=== PATIENT | female | born 2000 | race Caucasian/White ===

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

== ENCOUNTER 2022-05-27 13:40 | Emergency (ER) | payer OTHER, SELFPAY ==
[2022-05-27 13:46] VITALS: BP 109/75; PULSE 101; RESP 16; TEMP 37.3; O2SAT 100
--- NOTE | 2022-05-27 14:37 | ED.URI ---
HPI - URI/Sore Throat General Chief Complaint: Upper Respiratory Infection Stated Complaint: migraine sore throat and abdo pain Time Seen by Provider: 05/27/22 14:37 Source: patient Mode of arrival: ambulatory Limitations: no limitations History of Present Illness HPI Narrative: 21 yo F presents with c/o sore throat, headache, fatigue, bodyaches, chills for 3 days. Reports some symptoms improving but still has sore throat. Denies N/V. Had mild runny nose but resolved. Taking tylenol with no relief of pain. All systems reviewed and negative except as noted above. Related Data Home Medications Medication Instructions Recorded Confirmed No Home Medications 01/25/22 05/27/22 Allergies Allergy/AdvReac Type Severity Reaction Status Date / Time No Known Allergies Allergy Verified 05/27/22 14:09 Review of Systems Review of Systems: CONSTITUTIONAL: Reports fever, chills, or sweats. EYES: Denies visual changes, redness, or discharge. ENT: Denies rhinorrhea, congestion. Reports sore throat. Denies otalgia. CARDIOVASCULAR: Denies chest pain, palpitations, or edema. RESPIRATORY: Denies cough or dyspnea. GASTROINTESTINAL: Denies abdominal pain, nausea, vomiting, or diarrhea. GENITOURINARY: Denies dysuria or hematuria. SKIN: Denies rash or itching. MUSCULOSKELETAL: Denies back pain, joint pain, or myalgia. NEUROLOGIC: Reports headache. Denies numbness, or weakness. PSYCHIATRIC: Denies anxiety or depression. All other systems reviewed are negative, except as documented in HPI. [facility] Past Medical History Medical History Fibroid Generalized headaches Otitis externa Right arm fracture Strep pharyngitis Surgical History Surgical History History of dental surgery as child. Family History Family History Grandparent HIGUERA (nonalcoholic steatohepatitis) Diabetes mellitus Skin cancer Heart disease Depression Hypertension Father Hypertension Social History Social History Smoking status: Current every day smoker (vapes/e-cigarettes) Tobacco type: e-cigarettes/vaping Alcohol intake: never Substance use: never Gender identity (if verbalized by the patient): Female Comments At time of signature, agree with nursing past medical, surgical, social and family history. There is no relevant family history pertinent to the presenting complaint. Exam Narrative: GENERAL: This is a well-nourished, well-developed patient, in no apparent distress. HEAD: normocephalic, atraumatic. EYES: PERRL. Sclera clear/white. Vision is grossly intact. EARS: External ears normal, auditory canals clear and without drainage, TMs normal without perforation. Hearing grossly intact. NOSE: External nose normal with no obvious nasal discharge, nares without redness, no rhinorrhea. THROAT: Mucous membranes moist, mild erythema to posterior pharynx. No swelling or exudates. NECK: Neck supple, non-tender without lymphadenopathy, masses or thyromegaly. CARDIOVASCULAR: Regular rate and rhythm without murmurs, gallops, or rubs. RESPIRATORY: Clear to auscultation. Breath sounds equal bilaterally. No wheezes, rales, or rhonchi. SKIN: warm, Dry, intact with no suspicious lesions or rash, good texture and turgor. NEURO: awake, alert, and oriented to person, place and time. There were no obvious focal neurologic abnormalities. EXTREMITIES: No joint tenderness, effusion, or edema noted. Course Course Level of Care: Express Care Visit Vital Signs Vital signs: Vital Signs Temperature 37.3 C 05/27/22 13:46 Pulse Rate 101 H 05/27/22 13:46 Respiratory Rate 16 05/27/22 13:46 Blood Pressure 109/75 05/27/22 13:46 Pulse Oximetry 100 05/27/22 13:46 Oxygen Delivery Room Air 05/27/22 13:46 Temperat
== END 2022-05-27 14:45 | disposition home or self-care (01) ==
PROVIDERS: Emergency Provider Nurse Practitioner Family
DX: B34.9 Viral infection, unspecified (principal); Z20.822 Contact with and (suspected) exposure to COVID-19; F17.290 Nicotine dependence, other tobacco product, uncomplicated
CPT/HCPCS: 87081; 87426; 87880; 99213; C9803; G0463

== ENCOUNTER 2022-09-06 11:22 | Emergency (ER) | payer OTHER, SELFPAY ==
[2022-09-06 11:27] VITALS: BP 109/72; PULSE 77; RESP 18; TEMP 37.5; O2SAT 99
--- NOTE | 2022-09-06 12:12 | ED.URI ---
HPI - URI/Sore Throat General Chief Complaint: Upper Respiratory Infection Stated Complaint: Left Arm Pain Time Seen by Provider: 09/06/22 12:14 Source: patient and RN notes reviewed Mode of arrival: ambulatory Limitations: no limitations History of Present Illness MD elicited complaint: cough Related Data Home Medications Medication Instructions Recorded Confirmed levonorgestrel 20 mcg/24 hours (8 1 device intrauterine ONCE 06/05/22 09/06/22 yrs) 52 mg intrauterine device (Mirena) Allergies Allergy/AdvReac Type Severity Reaction Status Date / Time nickel Allergy Unknown Unknown Verified 09/06/22 11:51 Review of Systems Review of Systems: CONSTITUTIONAL: denies malaise, chills, sweats, fever EYES: Denies visual changes, redness, or discharge ENT:per HPI CARDIOVASCULAR: Denies chest pain, palpitations, edema RESPIRATORY: Reports cough, post nasal drainage. Denies dyspnea GASTROINTESTINAL: Denies abdominal pain, nausea, vomiting, diarrhea SKIN: Denies rash or itching MUSCULOSKELETAL: Denies myalgia NEUROLOGIC: Denies headache PMFSH Past Medical History Medical History Fibroid Generalized headaches Otitis externa Right arm fracture Strep pharyngitis Surgical History Surgical History History of dental surgery as child. Family History Family History Grandparent HIGUERA (nonalcoholic steatohepatitis) Diabetes mellitus Skin cancer Heart disease Depression Hypertension Father Hypertension Social History Social History Smoking status: Current every day smoker (vapes/e-cigarettes) Tobacco type: e-cigarettes/vaping Alcohol intake: never Substance use: never Additional occupation/education comments: [employer] Gender identity (if verbalized by the patient): Female Exam Narrative: GENERAL: Ill-appearing, nontoxic EYES: conjunctivae clear ENT: Mucous membranes moist. TMs pearly douglas with normal light reflex bilaterally; no tragal tenderness. Post auricular red slightly raised tender areas bilaterally approx 1cm diameter c/w lymphadenopathy, right neck with additional red raised area approx 0.5cm diameter. Oropharynx erythematous without lesions or exudate, no drooling, no hoarseness, no trismus, uvula midline. NECK: Supple. left posterior/cervical area with approx 0.5cm diameter subcutaneous tender nodule, no redness CHEST: Clear to auscultation, breath sounds equal. HEART: Regular rate and rhythm. No murmur heard. SKIN: Warm, dry, no rash. NEURO: Alert and oriented x3. Course Course Emergency Course: Patient is aware of diagnosis, understands and agrees to treatment plan. Anticipatory guidance given. Patient agrees to follow-up as directed and is aware of reasons to seek care at the emergency department. Portions of this record may have been created with voice recognition software Level of Care: Express Care Visit Vital Signs Vital signs: Vital Signs Temperature 99.5 F 09/06/22 11:27 Pulse Rate 77 09/06/22 11:27 Respiratory Rate 18 09/06/22 11:27 Blood Pressure 109/72 09/06/22 11:27 Pulse Oximetry 99 09/06/22 11:27 Oxygen Delivery Room Air 09/06/22 11:27 Temperature 99.5 F 09/06/22 11:27 Pulse Rate 77 09/06/22 11:27 Respiratory Rate 18 09/06/22 11:27 Blood Pressure 109/72 09/06/22 11:27 Pulse Oximetry 99 09/06/22 11:27 Oxygen Delivery Room Air 09/06/22 11:27 reviewed MDM - URI/Sore Throat MDM Narrative Medical decision making narrative: Advised supportive measures and signs/symptoms to go to the ER. Pt is appropriate for outpt treatment and f/u. Differential Diagnosis Differential diagnosis: Likely upper respiratory infection, sinusitis and viral infection Discharge Plan Discharge Clinic
--- NOTE | 2022-09-06 15:25 | PC.NURSE ---
MEDROL DOSE PACK WAS CALLED INTO [facility] [place], IT WAS NOT ELECTRONICALLY TRANSMITTED.
== END 2022-09-06 12:30 | disposition home or self-care (01) ==
PROVIDERS: Emergency Provider Nurse Practitioner Family
DX: J06.9 Acute upper respiratory infection, unspecified (principal); F17.290 Nicotine dependence, other tobacco product, uncomplicated
CPT/HCPCS: 99213; G0463

== ENCOUNTER 2022-10-29 11:27 | Outpatient (CLI) | payer OTHER, SELFPAY ==
--- NOTE | ~2022-10-29 | XR_ITS ---
XR abdomen obstructive series DATE: 10/29/2022 11:48 INDICATION: Abdominal pain TECHNIQUE: Supine and upright AP views of the abdomen COMPARISON: None FINDINGS: An IUD overlies the pelvis. No evidence of bowel obstruction or intraperitoneal free air. The psoas shadows are intact. No viscer omegaly is noted. Multiple left calcified pelvic phleboliths. No apparent urinary tract calcification . The lung bases are clear. Heart size appears normal. Included skeletal structures are unremarkable. IMPRESSION: IUD overlying pelvis Reviewed, dictated and finalized at [facility]. Reviewed, dictated and finalized at location [facility]. 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
[2022-10-31 10:20] LABS: HIV 1 2 Ag Ab 4th Gen w Rflxs Non-reactive (Non-reactive)
[2022-11-01 21:01] LABS: HSV 1 IgM Screen Negative (Negative); HSV 2 IgM Screen Negative (Negative)
== END 2022-10-29 11:28 | disposition home or self-care (01) ==
LOC: ANHBWCLAB 11:28
PROVIDERS: PCP Family Medicine; Visit Provider Family Medicine
DX: R10.9 Unspecified abdominal pain (principal); Z72.51 High risk heterosexual behavior
CPT/HCPCS: 36415; 74019; 86695; 86696; 87389; 87491; 87591

== ENCOUNTER 2022-12-17 13:48 | Outpatient (CLI) | payer OTHER, SELFPAY ==
[2022-12-21 08:45] LABS: HSV 1 IgM Screen Negative (Negative); HSV 2 IgM Screen Negative (Negative)
== END 2022-12-17 13:49 | disposition home or self-care (01) ==
PROVIDERS: PCP Family Medicine; Visit Provider Obstetrics & Gynecology
DX: Z20.2 Contact with and (suspected) exposure to infections with a predominantly sexual mode of transmission (principal)
CPT/HCPCS: 36415; 86695; 86696

== ENCOUNTER 2023-05-11 08:51 | Emergency (ER) | payer OTHER, SELFPAY ==
[2023-05-11 09:00] VITALS: BP 106/77; PULSE 98; RESP 20; TEMP 36.6; O2SAT 100
--- NOTE | 2023-05-11 09:22 | ED.URI ---
HPI - URI/Sore Throat General Chief Complaint: Upper Respiratory Infection Stated Complaint: sore throat/fever Time Seen by Provider: 05/11/23 09:10 Source: patient and RN notes reviewed History of Present Illness HPI Narrative: Patient is a 22-year-old female presents to urgent care with complaints of a sore throat, intermittent headaches and fever. Patient states that her symptoms started on Friday with a slight sore throat and worsened over the last couple days. Patient has been taking Tylenol for the fever. No other acute complaints. Denies any ill exposures. No acute distress noted. Patient aware of the plan of care. Some parts of this dictation were generated by voice recognition software and may contain typographical and/or grammatical inaccuracies. Related Data Home Medications Medication Instructions Recorded Confirmed levonorgestrel 21 mcg/24 hours (8 1 device intrauterine ONCE 06/05/22 05/11/23 yrs) 52 mg intrauterine device (Mirena) Allergies Allergy/AdvReac Type Severity Reaction Status Date / Time nickel Allergy Unknown Unknown Verified 05/11/23 09:06 Review of Systems Review of Systems: CONSTITUTIONAL: Reports of fever EYES: Denies visual changes, redness, or discharge. ENT: Denies rhinorrhea, congestion, or otalgia. Reports of sore throat CARDIOVASCULAR: Denies chest pain, palpitations, or edema. RESPIRATORY: Denies cough or dyspnea. GASTROINTESTINAL: Denies abdominal pain, nausea, vomiting, or diarrhea. GENITOURINARY: Denies dysuria or hematuria. SKIN: Denies rash or itching. MUSCULOSKELETAL: Denies back pain, joint pain, or myalgia. NEUROLOGIC: Reports of headache All other systems reviewed are negative, except as documented in HPI. [facility] Past Medical History Medical History Fibroid Generalized headaches Otitis externa Right arm fracture Strep pharyngitis Surgical History Surgical History History of dental surgery as child. Family History Family History Grandparent HIGUERA (nonalcoholic steatohepatitis) Diabetes mellitus Skin cancer Heart disease Depression Hypertension Father Hypertension Social History Social History Smoking status: Current every day smoker (vapes/e-cigarettes) Tobacco type: e-cigarettes/vaping Alcohol intake: never Substance use: never Lack of Transportation: No Lack of Food: Never True Current Housing: I Have Housing Concerned About Future Housing: No Difficulty Paying Gas/Electric Bills: No Difficulty Paying for Meds: No Currently Unemployed: No Education: High School Diploma/GED Difficulty w/ Childcare or Family Care: No Living arrangements: with family Occupation/Education: occupation 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 There is no relevant family history pertinent to the patient complaint. Exam Narrative: GENERAL: This is a well-nourished, well-developed patient, in no apparent distress. HEAD: normocephalic, atraumatic. EYES: PERRL. Sclera clear/white. Vision is grossly intact. EARS: External ears normal, auditory canals clear and without drainage, TMs normal without perforation. Hearing grossly intact. NOSE: External nose normal with no obvious nasal discharge, nares without redness, no rhinorrhea. THROAT: Mucous membranes moist, posterior pharynx clear. NECK: Neck supple CARDIOVASCULAR: Regular rate and rhythm without murmurs, gallops, or rubs. RESPIRATORY: Clear to auscultation. Breath sounds equal bilaterally. No wheezes, rales, or rhonchi. SKIN: warm, intact with no suspici
== END 2023-05-11 09:39 | disposition home or self-care (01) ==
PROVIDERS: Emergency Provider Nurse Practitioner Family; PCP Family Medicine
DX: J02.9 Acute pharyngitis, unspecified (principal); F12.90 Cannabis use, unspecified, uncomplicated; F17.290 Nicotine dependence, other tobacco product, uncomplicated
CPT/HCPCS: 87081; 87880; 99213; G0463

== ENCOUNTER 2023-08-27 14:37 | Emergency (ER) | payer OTHER, SELFPAY ==
[2023-08-27 14:45] VITALS: BP 93/66; PULSE 60; RESP 18; TEMP 36.7; O2SAT 99
--- NOTE | 2023-08-27 15:01 | ED.FEMALEGU ---
HPI - Female Genitourinary General Chief complaint: Urogenital-Female Stated complaint: Urinary Problems Source: patient and RN notes reviewed History of Present Illness HPI Narrative: 22 yo F presents to urgent care with complaints of dysuria that started today. Pt reports burning with urination, urinary frequency and urgency. Denies any fevers, chills, abdominal pain, flank pain, vomiting, or back pain. Related Data Home Medications Medication Instructions Recorded Confirmed levonorgestrel 21 mcg/24 hours (8 1 device intrauterine ONCE 06/05/22 08/27/23 yrs) 52 mg intrauterine device (Mirena) Allergies Allergy/AdvReac Type Severity Reaction Status Date / Time nickel Allergy Unknown Unknown Verified 06/17/23 14:12 Review of Systems Review of Systems: CONSTITUTIONAL: Denies fever, chills, or sweats. EYES: Denies visual changes, redness, or discharge. ENT: Denies otalgia and sore throat CARDIOVASCULAR: Denies chest pain, palpitations, or edema. RESPIRATORY: Denies cough or dyspnea. GASTROINTESTINAL: Denies abdominal pain, nausea, vomiting, or diarrhea. GENITOURINARY: Dysuria SKIN: Denies rash or itching. MUSCULOSKELETAL: Denies back pain, joint pain, or myalgia. NEUROLOGIC: Denies headache, numbness, or weakness. Pertinent positives per HPI. [facility] Past Medical History Medical History (Updated 08/27/23 @ 15:04 by Sandrine Garcia, LOGGING ENGINEER) Fibroid Generalized headaches HSV-1 (herpes simplex virus 1) infection Otitis externa Right arm fracture Strep pharyngitis Surgical History Surgical History History of dental surgery as child. Family History Family History Grandparent HIGUERA (nonalcoholic steatohepatitis) Diabetes mellitus Skin cancer Heart disease Depression Hypertension Father Hypertension Social History Social History Smoking status: Current every day smoker (vapes/e-cigarettes) Tobacco type: e-cigarettes/vaping Alcohol intake: never Substance use: never Lack of Transportation: No Lack of Food: Never True Current Housing: I Have Housing Concerned About Future Housing: No Difficulty Paying Gas/Electric Bills: No Difficulty Paying for Meds: No Currently Unemployed: No Education: High School Diploma/GED Difficulty w/ Childcare or Family Care: No Living arrangements: with family Occupation/Education: occupation 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 There is no relevant family history pertinent to the patient complaint. Exam Narrative: GENERAL: This is a well-nourished, well-developed patient, in no apparent distress. HEAD: normocephalic, atraumatic. EYES: Sclera clear/white. Vision is grossly intact. EARS: External ears normal, auditory canals clear and without drainage. Hearing grossly intact. NOSE: External nose normal with no obvious nasal discharge, nares without redness, no rhinorrhea. THROAT: Mucous membranes moist, posterior pharynx clear. NECK: Neck supple, non-tender without lymphadenopathy, masses or thyromegaly. CARDIOVASCULAR: Regular rate and rhythm without murmurs, gallops, or rubs. RESPIRATORY: Clear to auscultation. Breath sounds equal bilaterally. No wheezes, rales, or rhonchi. GASTROINTESTINAL: Abdomen soft, non-tender, nondistended. Bowel sounds are active. No hepato-splenomegaly, or palpable masses. No guarding. SKIN: warm, intact with no suspicious lesions or rash, good texture and turgor. NEURO: awake, alert, and oriented to person, place and time. There were no obvious focal neurologic abnormalities. EXTREMITIES: No clubbing, cyanosis, or edema. No joint tenderness, effusio
== END 2023-08-27 15:10 | disposition home or self-care (01) ==
PROVIDERS: Emergency Provider Nurse Practitioner Family; PCP Family Medicine
DX: N39.0 Urinary tract infection, site not specified (principal); F17.290 Nicotine dependence, other tobacco product, uncomplicated
CPT/HCPCS: 81003; 87077; 87086; 87186; 99213; G0463

== ENCOUNTER 2024-07-12 12:43 | Emergency (ER) | payer OTHER, SELFPAY ==
[2024-07-12 12:50] VITALS: BP 104/75; PULSE 70; RESP 14; TEMP 36.9; O2SAT 100
--- NOTE | 2024-07-12 13:00 | ED.FEMALEGU ---
HPI - Female Genitourinary General Chief complaint: Urogenital-Female Stated complaint: Urinary Problem Time Seen by Provider: 07/12/24 13:00 Source: patient Mode of arrival: ambulatory Limitations: no limitations History of Present Illness HPI Narrative: 23-year-old female presents with complaint of urinary frequency, urgency, dysuria starting this morning. Afebrile. No back or abdominal pain. All systems reviewed and negative except as noted above. Related Data Home Medications Medication Instructions Recorded Confirmed levonorgestrel 21 mcg/24 hr (up to 1 device intrauterine ONCE 06/05/22 05/19/24 8 years) 52 mg intrauterine device (Mirena) Allergies Allergy/AdvReac Type Severity Reaction Status Date / Time nickel Allergy Unknown Unknown Verified 06/17/23 14:12 nkda AdvReac Mild na Uncoded 05/19/24 08:43 Review of Systems Review of Systems: CONSTITUTIONAL: Denies fever, chills, or sweats. EYES: Denies visual changes, redness, or discharge. ENT: Denies rhinorrhea, congestion, sore throat, or otalgia. CARDIOVASCULAR: Denies chest pain, palpitations, or edema. RESPIRATORY: Denies cough or dyspnea. GASTROINTESTINAL: Denies abdominal pain, nausea, vomiting, or diarrhea. GENITOURINARY: Reports dysuria, urgency, frequency. Denies hematuria. SKIN: Denies rash or itching. MUSCULOSKELETAL: Denies back pain, joint pain, or myalgia. NEUROLOGIC: Denies headache, numbness, or weakness. PSYCHIATRIC: Denies anxiety or depression. All other systems reviewed are negative, except as documented in HPI. [facility] Past Medical History Medical History Fibroid Generalized headaches HSV-1 (herpes simplex virus 1) infection Otitis externa Right arm fracture Strep pharyngitis Surgical History Surgical History History of dental surgery as child. Family History Family History Grandparent HIGUERA (nonalcoholic steatohepatitis) Diabetes mellitus Skin cancer Heart disease Depression Hypertension Father Hypertension Social History Social History Smoking status: Current every day smoker (vapes/e-cigarettes) Tobacco type: e-cigarettes/vaping Alcohol intake: never Substance use: never Lack of Transportation: No Lack of Food: Never True Current Housing: I Have Housing Concerned About Future Housing: No Difficulty Paying Gas/Electric Bills: No Difficulty Paying for Meds: No Currently Unemployed: No Education: High School Diploma/GED Difficulty w/ Childcare or Family Care: No Living arrangements: with family Occupation/Education: occupation 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 There is no relevant family history pertinent to the presenting complaint. Exam Narrative: GENERAL: This is a well-nourished, well-developed patient, in no apparent distress. HEAD: normocephalic, atraumatic. EYES: PERRL. Sclera clear/white. Vision is grossly intact. EARS: External ears normal NOSE: External nose normal NECK: Neck supple, non-tender without lymphadenopathy, masses or thyromegaly. CARDIOVASCULAR: Regular rate and rhythm without murmurs, gallops, or rubs. RESPIRATORY: Clear to auscultation. Breath sounds equal bilaterally. No wheezes, rales, or rhonchi. SKIN: warm, Dry, intact with no suspicious lesions or rash, good texture and turgor. NEURO: awake, alert, and oriented to person, place and time. There were no obvious focal neurologic abnormalities. EXTREMITIES: No joint tenderness, effusion, or edema noted. Course Course Level of Care: Express Care Visit Vital Signs Vital signs: Vital Sig
[2024-07-12 13:08] LABS: EDUAAPPEAR Cloudy; EDUABILI 1+; EDUABLOOD 2+; EDUACOLOR1 Yellow; EDUAGLUCOSE Negative; EDUAKETONE Negative; EDUALEUKO 1+; EDUANITRATE Negative; EDUAPROTEIN Trace; EDUAUROBILI 0.2
== END 2024-07-12 13:12 | disposition home or self-care (01) ==
PROVIDERS: Emergency Provider Nurse Practitioner Family
DX: N39.0 Urinary tract infection, site not specified (principal); F17.290 Nicotine dependence, other tobacco product, uncomplicated
CPT/HCPCS: 81003; 87077; 87086; 87088; 99213; G0463

== ENCOUNTER 2024-10-25 09:24 | Emergency (ER) | payer OTHER, SELFPAY ==
--- NOTE | 2024-10-25 09:39 | ED_ITS ---
HPI - URI/Sore Throat General Chief Complaint: Upper Respiratory Infection Stated Complaint: Sore Throat History of Present Illness HPI Narrative: 24-year-old female presented for complaint of sore throat for 2 weeks. Endorses associated nasal congestion, drainage, hoarse voice, and cough. Denies shortness of breath, wheezing, nausea, vomiting, diarrhea, fevers or lethargy. Taking cough drops for symptoms. Related Data Home Medications Medication Instructions Recorded Confirmed levonorgestrel 21 mcg/24 hr (up to 1 device intrauterine ONCE 06/05/22 09/29/24 10 years) 52 mg intrauterine device (Mirena) Allergies Allergy/AdvReac Type Severity Reaction Status Date / Time nickel Allergy Unknown Unknown Verified 09/29/24 08:47 nkda AdvReac Mild na Uncoded 09/29/24 08:47 Review of Systems Review of Systems: CONSTITUTIONAL: Denies body aches, fever, chills, or sweats. EYES: Denies visual changes, redness, or discharge. ENT:reports rhinorrhea, congestion, sore throat denies otalgia. CARDIOVASCULAR: Denies chest pain, palpitations, or edema. RESPIRATORY: Denies dyspnea. GASTROINTESTINAL: Denies abdominal pain, nausea, vomiting, or diarrhea. MUSCULOSKELETAL: Denies back pain, joint pain, or myalgia. NEUROLOGIC: Denies headache PMFSH Past Medical History Medical History Fibroid Generalized headaches HSV-1 (herpes simplex virus 1) infection Otitis externa Right arm fracture Strep pharyngitis Surgical History Surgical History History of dental surgery as child. Family History Family History Grandparent HIGUERA (nonalcoholic steatohepatitis) Diabetes mellitus Skin cancer Heart disease Depression Hypertension Father Hypertension Social History Social History Smoking status: Current every day smoker (vapes/e-cigarettes) Tobacco type: e-cigarettes/vaping Alcohol intake: never Substance use: never Lack of Transportation: No Lack of Food: Never True Current Housing: I Have Housing Concerned About Future Housing: No Difficulty Paying Gas/Electric Bills: No Difficulty Paying for Meds: No Currently Unemployed: No Education: High School Diploma/GED Difficulty w/ Childcare or Family Care: No Living arrangements: with family Occupation/Education: occupation 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 EYES: conjunctivae clear ENT: Mucous membranes moist. TM pearly douglas with normal light reflex bilaterally; no tragal tenderness. Oropharynx erythematous without lesions. Tonsils not enlarged and without exudate. Hoarse voice. No drooling, no trismus, uvula midline. No tripod positioning, hot potato voice, or soft palate swelling. NECK: Supple. No lymphadenopathy CHEST: Clear to auscultation, breath sounds equal. No respiratory distress, speaks in full sentences. HEART: Regular rate and rhythm. No murmur heard. SKIN: Warm, dry, no rash. NEURO: Alert and oriented x3. Course Course Emergency Course: Patient is aware of diagnosis, understands and agrees to treatment plan. Anticipatory guidance given. Patient agrees to follow-up as directed and is aware of reasons to seek care at the emergency department. Portions of this record may have been created with voice recognition software Level of Care: Express Care Visit MDM - URI/Sore Throat MDM Narrative Medical decision making narrative: Neg strep result reviewed with pt. Advise supportive treatments. Patient is appropriate for outpatient treatment and follow-up. Differential Diagnosis Differential diagnosis: Likely upper respiratory infection, viral infection and pharyngitis Discharge Plan Discharge Clinical Impression: Sinusitis Patient Disposition: Home, Self-Care Condition: Stable Instructions: Antibiotic Form, Rhinosinusitis (ED) Additional Instructions: Rapid strep swab was negative today You will be notified in a few days if the culture comes back positive for strep if symptoms are due to a viral illness, it is not treated with antibiotics. Viral symptoms can be present for up to 10-14 days. Recommendations: Flonase spray and Zyrtec for sinus congestion Cough syrup may cause drowsiness; avoid driving or take it at night time. Tylenol every 8 hours as needed for pain/fever Soft foods, cool liquids, warm tea. Gargle with warm saltwater twice a day. Chloraseptic spray and throat lozenges. Rest and stay hydrated. --Follow up with your PCP --Go to the ER immediately if you cannot swallow your saliva, trouble breathing/wheezing, throat swelling, pain is persistent and severe Prescriptions: New amoxicillin-pot clavulanate 875-125 mg tablet 1 tablet PO Q12H 7 Days Qty: 14 0RF No Action Mirena 20 mcg/24 hours (7 yrs) 52 mg intrauterine device 1 device intrauterine ONCE Rx Instructions: as a single dose valacyclovir 1 gram tablet 1,000 mg PO DAILY Qty: 30 11RF Follow-up/Referrals: PHYSICIAN,VENDING MACHINE MECHANIC [Primary Care Provider] - Time of Disposition: 09:55
[2024-10-25 09:46] VITALS: BP 110/67; PULSE 64; RESP 16; TEMP 36.6; O2SAT 99
[2024-10-25 17:03] LABS: EDSTREPNEGPOS1 Negative (Negative)
== END 2024-10-25 09:59 | disposition home or self-care (01) ==
PROVIDERS: Emergency Provider Nurse Practitioner Family
DX: J32.9 Chronic sinusitis, unspecified (principal); F17.290 Nicotine dependence, other tobacco product, uncomplicated
CPT/HCPCS: 87081; 87880; 99213; G0463

== ENCOUNTER 2025-04-25 12:49 | Emergency (ER) | payer OTHER, SELFPAY ==
--- OUTSIDE RECORDS SUMMARY | 2025-04-25 12:55 | XMS_ITS | Clinical Summary ---
Author Organization [facility] Address [address] [place] [address] Care Team Providers Care Slurry Tank Operator Name Role Phone Sara Colon MD Primary Care Provider Source Comments [facility],non-owned Affiliates and Associated Physician Practices is amultiple site organization consisting of ambulatory clinics and hospital sitesin [place], [place], [place] and [place]. This disclosure is being madepursuant to the Care Everywhere program and may not contain all information available regarding this patient. Last updated 18.[facility] Allergies No known active allergies Medications * Be aware that medications may not be up to date on this document. Alwaysverify current medications with the patient. No known medications Active Problems Problem Noted Date Diagnosed Date Neoplasm of uncertain behavior of skin Assessment & Plan (03/08/2021 4:00 PM CDT): - R upper eyelid PG vs other - Shave Biopsy (see procedure note) - Post-biopsy handout given - Wound care instructions reviewed - Will call patient with biopsy results. If intervention is indicated, will make arrangements at that time Weight loss 01/02/2021 Resolved Problems Problem Noted Date Diagnosed Date Resolved Date Lumbago 02/21/2017 01/02/2021 Closed fracture of radius and ulna 08/18/2014 01/02/2021 Immunizations Immunization Administration Dates Next Due Covid Pfizer primary monoval ent 12+ yr 0.3mL Purple cap 08/11/2021,07/21/2021 DTaP VACCINE IM (6wk-6yrs) 03/05/2008,,04/27/2003,02/25,2002 HEP A PEDS 2 DOSE 01/16/2008,07/24/2006 HEP B VACCINE, PED/ADOL 2002,2002 HIB Hep B 04/27/2003 HIB-PRP-T 4 DOSE 01/24/2004,02/25/2003, 3 Human Papilloma Virus Vaccine 07/06/2015, 014,06/14/2014 INFLUENZA VACCINE 10/28/2003 INFLUENZA VACCINE, QUADR. (F LUZONE; FLULAVAL; FLUARIX; AFLURIA QUADRIVALENT; 6MO+), 0.5 ML (IIV4) 01/08/2020,12/29/2018,10/28/2016 Influenza Nasal 09/08/2014 MENINGOCOCAL MENINGITIS 12/29/2018,06/14/2014 MENINGOCOCCAL B RECOMBINANT, 2 OR 3 DOSE, IM 01/08/2020,12/29/2018 MMR 10/28/2003 MMRV 03/05/2008 PNEUMOCOCCAL PCV7 CONJ, PEDS 08/15/2003,02/26/20 03,2002 POLIO IPV 03/05/2008, 3,02/25/2003,12/29 TDAP (7yrs+) 06/14/2014 VARICELLA 01/24/2004 Family History Medical History Relation Name Comments Other Father Heart Murmur,Mi tral Valve Prolapse Diabetes - Type 2 Maternal Grandfather Hypertension Maternal Grandfather Cancer - Skin, Non Melanoma Maternal Grandmother Hypertension Maternal Grandmother None Known Mother None Known Paternal Grandfather None Known Paternal Grandmother Relation Name Status Comments Father Alive Maternal Grandfather Alive Maternal Grandmother Alive Mother Alive Paternal Grandfather Alive Paternal Grandmother Alive Social History Tobacco Use Types Packs/Day Years Used Date Smoking Tobacco: Never Smokeless Tobacco: Never Alcohol Use Standard Drinks/Week Comments Never 0 (1 standard drink = 0.6 oz pur e alcohol) PHQ-2 Answer Date Recorded PHQ2 TOTAL SCORE 0 03/19/2021 Comments No Sex and Gender Information Value Date Recorded Sex Assigned at Female 03/19/2021 3:31 PM CDT Legal Sex Female 2:27 PM CDT Gender Identity Female 03/19/2021 3:31 PM CDT Sexual Orientation Straight 03/19/2021 3: 31 PM CDT Last Filed Vital Signs Vital Sign Reading Time Taken Comments Blood Pressure 120/65 01/04/2022 2:28 PM AVIATION SURVIVAL TECHNICIAN Pulse 69 01/04/2022 2:28 PM AVIATION SURVIVAL TECHNICIAN Temperature 36.3 C (97.3 F) 01/04/2022 1:47 PM AVIATION SURVIVAL TECHNICIAN Respiratory Rate 17 01/04/2022 2:28 PM AVIATION SURVIVAL TECHNICIAN Oxygen Saturation 97% 01/04/2022 2:28 PM AVIATION SURVIVAL TECHNICIAN Inhaled Oxygen Concentration - - Weight 47.2 kg (104 lb) 01/24/2022 2:37 PM AVIATION SURVIVAL TECHNICIAN Height 162.6 cm (5' 4) 01/24/2022 2:37 PM AVIATION SURVIVAL TECHNICIAN Body Mass Index 17.85 01/24/2022 2:37 PM AVIATION SURVIVAL TECHNICIAN Plan of Treatment Health Maintenance Due Date Last Done Comments PAP SMEAR 2002 CHLAMYDIA/GONORRHEA SCREENING 2018 HEPATITIS C SCREENING 10/20/2020 DTAP/TDAP/TD VACCINES (7 - Td or Tdap) 06/14/2024 06/14/2014, 03/05/2008, 01/24/2004, Additional history exists COVID-19 VACCINE ( season) 2024 08/11/2021, 07/21/2021 DEPRESSION SCREENING 11/24/2024 INFLUENZA VACCINE (Season Ended) 2025 01/08/2020, 12/29/2018, 10/28/2016, Additional history exists ZOSTER VACCINE (1 of 2) 2052 HEPATITIS B VACCINE Completed 04/27/2003, 2002, 2002 PNEUMOCOCCAL VACCINE Aged Out 08/15/2003, 02/25/2003, 2002 No longer eligible based on patient's age to complete this topic HIB VACCINE Completed 01/24/2004, 02/2003, 02/25/2003, Additional history exists HPV VACCINE Completed 07/06/2015, 08/24, 06/14/2014 MENINGOCOCCAL GROUPS A/C/Y/W VACCINE Completed 12/29/2018, 06/14/2014 MENINGOCOCCAL (Group B) VACCINE SHARED DECISION-MAKING Completed 01/08/2020, 12/29/2018 HIV SCREENING Completed 12/29/2020 Procedures Procedure Name Priority Date/Time Associated Diagnosis Comments HIV-1 HIV-2 ANTIBODY + HIV P24 AG PANEL Routine 12/29/2020 9:55 AM AVIATION SURVIVAL TECHNICIAN Weight loss Body mass index, pediatric, less than 5th percentile for age from Last 3 Months or Most Recently Relevant to Health Maintenance Results * HIV-1 HIV-2 ANTIBODY + HIV P24 AG PANEL (12/29/2020 9:55 AM AVIATION SURVIVAL TECHNICIAN) HIV Screen 4th Generation w Reflex NON-REACT CLAUDINE NON-REACT CLAUDINE [facility] Comment: HIV-1 antigen and HIV-1/HIV-2 antibodies were not detected. There is no laboratory evidence of HIV infection. PLEASE NOTE: This information has been disclosed to you from records whose confidentiality may be protected by state law. If your state requires such protection, then the state law prohibits you from making any further disclosure of the information without the specific written consent of the person to whom it pertains, or as otherwise permitted by law. A general authorization for the release of medical or other information is NOT sufficient for this purpose. For additional information please refer to http://education.Circular/faq/IAZ019 (This link is being provided for informational/ educational purposes only.) The performance of this assay has not been clinically validated in patients less than 2 years old. Test Performed at: [facility] [address] [place] [address] NBA GILBERT DO,MPH Blood BLOOD SPECIMEN / Unknown 12/29/2020 9:55 AM AVIATION SURVIVAL TECHNICIAN 12/29/2020 10:00 AM AVIATION SURVIVAL TECHNICIAN us Sara Colon MD LAB - CHEMISTRY ORDERABLES F inal Result [facility] [id number] [place] [address] from Last 3 Months or Most Recently Relevant to Health Maintenance Insurance [employer] [facility] Advance Directives * Full Code (Latest Code Status on File) Date Activated Date Inactivated Comments 01/04/2022 9:38 AM 01/04/2022 3:55 PM Care Teams Slurry Tank Operator Relationship Specialty Start Date End Date Sara Colon MD PCP - General Pediatrics 04/20/19
[2025-04-25 13:02] VITALS: BP 107/77; PULSE 71; RESP 16; TEMP 36.6; O2SAT 98
[2025-04-25 13:15] LABS: EDUAAPPEAR Cloudy; EDUABILI 1+ (Negative); EDUABLOOD 2+ (Negative); EDUACOLOR1 Yellow; EDUAGLUCOSE Negative (Negative); EDUAKETONE Negative (Negative); EDUALEUKO 1+ (Negative); EDUANITRATE Negative (Negative); EDUAPH 5.5; EDUAPROTEIN 1+ (Negative); EDUAUROBILI 0.2
--- NOTE | 2025-04-25 13:20 | ED.FEMALEGU ---
HPI - Female Genitourinary General Chief complaint: Urogenital-Female Stated complaint: Urinary Problem Time Seen by Provider: 04/25/25 13:05 Source: patient and RN notes reviewed Mode of arrival: ambulatory Limitations: no limitations History of Present Illness HPI Narrative: 24-year-old female presents Express Care complaining of urinary symptoms for 7 days. Patient reports having dysuria, increased frequency, suprapubic pain. Patient denies any fevers, body aches, chills, nausea, vomiting, diarrhea. Patient had a left over Macrobid prescription 3 days worth of the prescription said her symptoms get better then her symptoms returned 2 days after. Patient denies any significant past medical history. Patient denies any vaginal bleeding, vaginal discharge, vaginal irritation, or any concerns for STIs. Related Data Home Medications ?Medication ?Instructions ?Recorded ?Confirmed ?Last Taken ?Type levonorgestrel (Mirena) 1 device intrauterine ONCE 06/05/22 11/19/24 Unknown History Allergies Allergy/AdvReac Type Severity Reaction Status Date / Time nickel Allergy Unknown Unknown Verified 12/11/24 15:57 Review of Systems Review of Systems: CONSTITUTIONAL: Denies fever, chills, body aches, or sweats. EYES: Denies visual changes, redness, or discharge. ENT: Denies rhinorrhea, congestion, sore throat, or otalgia. CARDIOVASCULAR: Denies chest pain, palpitations, or edema. RESPIRATORY: Denies cough or dyspnea. GASTROINTESTINAL: Denies abdominal pain, nausea, vomiting, or diarrhea. GENITOURINARY: Positive for dysuria, suprapubic pain, increased frequency. Negative for hematuria. SKIN: Denies rash or itching. MUSCULOSKELETAL: Denies back pain, joint pain, or myalgia. NEUROLOGIC: Denies headache, numbness, or weakness. PSYCHIATRIC: Denies anxiety or depression. All other systems reviewed are negative, except as documented in HPI. [facility] Past Medical History Medical History HSV-1 (herpes simplex virus 1) infection Fibroid Otitis externa Right arm fracture Generalized headaches Strep pharyngitis Surgical History Surgical History History of dental surgery as child. Family History Family History Grandparent HIGUERA (nonalcoholic steatohepatitis) Diabetes mellitus Skin cancer Heart disease Depression Hypertension Father Hypertension Other Carcinoma of colon uncle Social History Social History Smoking status: Current every day smoker (vapes/e-cigarettes) Tobacco type: e-cigarettes/vaping Alcohol intake: never Substance use: never Lack of Transportation: No Lack of Food: Never True Current Housing: I Have Housing Concerned About Future Housing: No Difficulty Paying Gas/Electric Bills: No Difficulty Paying for Meds: No Currently Unemployed: No Education: High School Diploma/GED Difficulty w/ Childcare or Family Care: No Living arrangements: with family Occupation/Education: occupation 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 There is no relevant family history pertinent to the patient complaint. Exam Narrative: GENERAL: This is a well-nourished, well-developed adult, in no apparent distress. They are non ill-appearing, nontoxic appearing. HEAD: normocephalic, atraumatic. EYES: Sclera clear/white. Vision is grossly intact. Conjunctiva normal bilaterally. Extraocular movements intact. EARS: External ears normal,Hearing grossly intact. NOSE: External nose normal THROAT: Mucous membranes moist NECK: Normal range of motion CARDIOVASCULAR: Regular rate and rhythm. Normal S1-S2. No clicks, gallops, rubs, or murmurs. RESPIRATORY: Respiratory rate normal, respiratory effort nonlabored, no respiratory distress. Lung sounds are clear clear to auscultation throughout. Lung sounds are equal bilaterally. No adventitious lung sounds. GASTROINTESTINAL: Abdomen soft, flat, mild suprapubic tenderness to palpation, nondistended. Bowel sounds are active. No hepato-splenomegaly, or palpable masses. No guarding. No rebound tenderness. SKIN: warm, Dry, intact with no suspicious lesions or rash, good texture and turgor. NEURO: awake, alert, and oriented to person, place and time. There were no obvious focal neurologic abnormalities. EXTREMITIES: No joint tenderness, effusion, or edema noted. BACK: Nontender without deformity. No CVA tenderness. Course Course Emergency Course: Portions of this record may have been created with voice recognition software Level of Care: Express Care Visit MDM - Female Genitourinary MDM Narrative Medical decision making narrative: Urine dipstick shows evidence of urinary tract infection. Urine culture pending. Will treat with cephalexin since she did not finish the full course of Macrobid. Discussed physical exam findings. Advised supportive measures and signs/symptoms to go to the ER. Pt is appropriate for outpt treatment and f/u. Differential Diagnosis Differential diagnosis: Likely urinary tract infection, cystitis and other (Pyelonephritis) Lab Data Attestation: I reviewed the patient's lab results. Labs: Lab Results 04/25/25 Range/Units 13:08 POC Urine Color Yellow POC Urine Clarity Cloudy POC Urine pH 5.5 POC Ur Specif [place] 1.030 POC Urine Protein 1+ (Negative) POC Ur Glucose (UA) Negative (Negative) POC Urine Ketones Negative (Negative) POC Urine Blood 2+ (Negative) POC Urine Nitrite Negative (Negative) POC Urine Bilirubin 1+ (Negative) POC Urine Urobilinogen 0.2 POC U Leukocyte Esteras 1+ (Negative) Discharge Plan Discharge Clinical Impression: Urinary tract infection Qualifiers: Urinary tract infection type: site unspecified Hematuria presence: with hematuria Qualified Code(s): N39.0 - Urinary tract infection, site not specified Patient Disposition: Home Condition: Stable Instructions: Antibiotic Form, Urinary Tract Infection in Women (ED) Additional Instructions: Take the antibiotic as prescribed The urine will be sent of for a culture to identify what type of bacteria is causing your infection. If the culture shows that the antibiotic will not get rid of your infection, you will be notified and a new antibiotic will be called in for you. Increase water intake you will need to follow up with your PCP 3-5 days. Go to the ER for any worsening symptoms, abdominal pain, fevers, nausea, vomiting, or any other concerns Patient Language: [place] Prescriptions: New cephalexin 500 mg capsule 500 mg PO BID 7 Days Qty: 14 0RF No Action Mirena 20 mcg/24 hours (7 yrs) 52 mg intrauterine device 1 device intrauterine ONCE Rx Instructions: as a single dose valacyclovir 1 gram tablet 1,000 mg PO DAILY Qty: 30 11RF Follow-up/Referrals: PHYSICIAN,HEATING AND COOLING SYSTEMS ENGINEER [Primary Care Provider] - Time of Disposition: 13:19
== END 2025-04-25 13:29 | disposition home or self-care (01) ==
DX: N39.0 Urinary tract infection, site not specified (principal); F17.290 Nicotine dependence, other tobacco product, uncomplicated
CPT/HCPCS: 81003; 87086; 99213; G0463